=== PATIENT | female | born 1960 | race Caucasian/White ===

== ENCOUNTER 2024-10-16 05:08 | Emergency (ER) | payer OTHER, SELFPAY ==
[2024-10-16 05:11] VITALS: BP 154/73; PULSE 58; TEMP 36.7; O2SAT 97; BMI 36.4
--- NOTE | 2024-10-16 05:30 | XR_ITS ---
[facility] [id number] Patient Name: MORGAN BRANTLEY MRN: [id number] date: 1960 Sex: F Assigned Patient Location: ER Current Patient Location: ER Accession/Order Number: [id number] Exam Date: 10/16/2024 05:40 Report Date: 10/16/2024 05:51 At the request of: HUMBLE GARCIA Procedure: XR hand RT min 3V EXAM: XR hand RT min 3V HISTORY: middle finger injury COMPARISON: None. TECHNIQUE: 3 views of the right hand were obtained. FINDINGS: No acute fracture or dislocation is seen. There is remote posttraumatic deformity of the mid fifth metacarpal shaft. There are scattered degenerative changes. XR/XR hand RT min 3V IMPRESSION: 1. No acute fracture or dislocation of the right hand or fingers is seen. If pain persists, repeat radiographs are recommended in 7-10 days. Electronically authenticated by: Ty MAGALLON Date: 10/16/2024 05:51
--- NOTE | 2024-10-16 05:31 | ED.GENADUL1 ---
HPI HPI - General Adult General Chief complaint: Extremity Injury, Upper Stated complaint: UPPER EXTREMITY INJURY Time Seen by Provider: 10/16/24 05:28 Source: patient Mode of arrival: walk-in Limitations: no limitations History of Present Illness HPI narrative: Patient states that while at work she accidentally smashed her right middle finger when the lid of a door came down on it. She reports pain over the distal aspect especially with local pressure. No other injuries reported. Related Data Allergies Allergy/AdvReac Type Severity Reaction Status Date / Time No Known Drug Allergies Allergy Verified 10/16/24 05:14 Opioid HPI Opioid Management Most Recent Opioid Data: No Data to Display Review of Systems ROS Status of ROS 10 or more systems reviewed and unremarkable except as noted in history and below PFSH [facility] Social History Little interest or pleasure in doing things: not at all Feeling down, depressed, or hopeless: not at all Exam Narrative Exam Narrative: Patient's vitals are fairly stable and she does not appear acutely distressed. Focused physical exam of the right hand is carried out. There is no obvious bruising over the right middle finger. No subungual hematoma is noted and there is no laceration. There is tenderness to palpation over the tuft. She has intact range of motion in all the small joints of the right hand. Constitutional Vital Signs, click to edit/add: Last Vital Signs Temp 98.0 F 10/16/24 05:11 Pulse 58 L 10/16/24 05:11 Resp 18 10/16/24 05:11 BP 154/73 H 10/16/24 05:11 Pulse Ox 97 10/16/24 05:11 O2 Del Method Room Air 10/16/24 05:11 Course Vital Signs Vital signs: Vital Signs Temperature 98.0 F 10/16/24 05:11 Pulse Rate 58 L 10/16/24 05:11 Respiratory Rate 18 10/16/24 05:11 Blood Pressure 154/73 H 10/16/24 05:11 Pulse Oximetry 97 10/16/24 05:11 Oxygen Delivery Method Room Air 10/16/24 05:11 Temperature 98.0 F 10/16/24 05:11 Pulse Rate 58 L 10/16/24 05:11 Respiratory Rate 18 10/16/24 05:11 Blood Pressure 154/73 H 10/16/24 05:11 Pulse Oximetry 97 10/16/24 05:11 Oxygen Delivery Method Room Air 10/16/24 05:11 Medical Decision Making MDM Narrative Medical decision making narrative: X-rays are negative. Patient is discharged with supportive care advised and may return anytime for worsening symptoms. Discharge Plan Discharge Chief Complaint: Extremity Injury, Upper Clinical Impression: Contusion of right middle finger Qualifiers: Encounter type: initial encounter Damage to nail status: without damage Qualified Code(s): S60.031A - Contusion of right middle finger without damage to nail, initial encounter Patient Disposition: Home, Self-Care Time of Disposition Decision: 06:00 Condition: Good Mode of Transportation: Private Vehicle Print Language: Barbadian Instructions: Contusion in Adults (ED) Additional Instructions: Apply ice to affected area. Ibuprofen for pain as needed. Return anytime for worsening symptoms. Referrals: OCTAVIO ORNELAS [Physician] - 1 week
== END 2024-10-16 06:21 | disposition home or self-care (01) ==
PROVIDERS: Emergency Provider Emergency Medicine; PCP Family Medicine
DX: S60.031A Contusion of right middle finger without damage to nail, initial encounter (principal); W23.0XXA Caught, crushed, jammed, or pinched between moving objects, initial encounter
CPT/HCPCS: 73130; 99283